=== PATIENT | male | born 1960 | race African-American/Black ===

== ENCOUNTER 2019-08-09 12:59 | Emergency (ER) | payer SELFPAY ==
[~2019-08-09] VITALS: Ht 175.3 cm; Wt 88.6 kg
[2019-08-09 14:57] VITALS: BP 126/85
== END 2019-08-09 14:58 | disposition home or self-care (01) ==
LOC: EMS 12:59
DX: S86.811A Strain of other muscle(s) and tendon(s) at lower leg level, right leg, initial encounter (principal); S76.011A Strain of muscle, fascia and tendon of right hip, initial encounter; M70.861 Other soft tissue disorders related to use, overuse and pressure, right lower leg; X50.9XXA Other and unspecified overexertion or strenuous movements or postures, initial encounter; Y93.43 Activity, gymnastics; Y92.39 Other specified sports and athletic area as the place of occurrence of the external cause; Y99.8 Other external cause status